=== PATIENT | female | born 1980 | race African-American/Black ===

== ENCOUNTER 2019-05-07 15:29 | Emergency (ER) | payer MEDICAID ==
[~2019-05-07] VITALS: Ht 170.2 cm; Wt 100.0 kg
[2019-05-07 15:48] VITALS: BP 124/89
[2019-05-07] MEDS ORDERED: OXYCODONE HCL/ACETAMINOPHEN 5/325MG TABLET PO ONE (17:15)
== END 2019-05-07 19:04 | disposition home or self-care (01) ==
LOC: ER 15:29
DX: M25.561 Pain in right knee (principal); W01.0XXA Fall on same level from slipping, tripping and stumbling without subsequent striking against object, initial encounter; Y93.89 Activity, other specified; Y92.89 Other specified places as the place of occurrence of the external cause
CPT/HCPCS: 73562; 99283; L1830